=== PATIENT | male | born 1995 | race Caucasian/White ===

== ENCOUNTER 2016-10-10 21:11 | Emergency (ER) | payer OTHER ==
[2016-10-10 21:20] VITALS: BP 115/66; PULSE 85; RESP 16; TEMP 99; O2SAT 98
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
[2016-10-10] MEDS ORDERED: HYDROCOD/APAP 5/325 PREPACK#6 BTL TAKEHOME ONE (23:14)
== END 2016-10-10 23:27 | disposition home or self-care (01) ==
DX: T23.231A Burn of second degree of multiple right fingers (nail), not including thumb, initial encounter (principal); X19.XXXA Contact with other heat and hot substances, initial encounter; Y92.69 Other specified industrial and construction area as the place of occurrence of the external cause; Y99.0 Civilian activity done for income or pay